=== PATIENT | female | born 1940 | race Caucasian/White ===

== ENCOUNTER 2016-05-13 14:18 | Emergency (ER) | payer OTHER ==
[2016-05-13] MEDS ORDERED: MORPHINE 2 MG/ML SYR ONE (15:12)
[2016-05-13] MEDS ORDERED: ONDANSETRON 4 MG VIAL ONE (15:12)
[2016-05-13] MEDS ORDERED: METHYLPRED SOD SUCC 125 MG/2 ML VIAL ONE (15:12)
[2016-05-13] MEDS ORDERED: DUONEB INH ONE ×2 (15:19)
== END 2016-05-13 16:30 | disposition home or self-care (01) ==
LOC: ER 14:18
DX: J20.9 Acute bronchitis, unspecified (principal); Z87.891 Personal history of nicotine dependence
CPT/HCPCS: 36415; 71020; 80053; 81003; 83690; 83880; 85025; 94640; 96374; 96375; 99284; J2405; J2930